=== PATIENT | female | born 1980 | race Caucasian/White ===

== ENCOUNTER 2019-11-15 12:34 | Outpatient (CLI) | payer BC | END 2019-11-15 12:35 | disposition home or self-care (01) | LOC: ULT 12:34 | PROVIDERS: ATTEND Internal Medicine | DX: I42.8 Other cardiomyopathies (principal); R00.2 Palpitations; I34.0 Nonrheumatic mitral (valve) insufficiency; I31.3 Pericardial effusion (noninflammatory); I08.8 Other rheumatic multiple valve diseases | CPT/HCPCS: 93306 ==

== ENCOUNTER 2020-01-17 07:59 | Outpatient (CLI) | payer BC ==
[2020-01-17 11:30] LABS: Hemoglobin 15.1 g/dL (12.0-16.0); Mean Corpuscular HGB CONC 33.6 g/dL (32.0-36.0); Mean Corpuscular Hemoglobin 31.6 pg (27.0-31.0); Platelet Count 281 thou/uL (130-400); RBC Distribution Width 11.6 % (11.5-14.5); Red Blood Cell (RBC) Count 4.79 mill/uL (4.20-5.40); White Blood Cell (WBC) Count 6.4 thou/uL (4.8-10.8)
[2020-01-17 11:39] LABS: PTT 30.8 SEC (22.9-36.1)
[2020-01-17 11:59] LABS: ALT (SGPT) 14 U/L (8-55); AST (SGOT) 17 U/L (5-34); Albumin 4.4 g/dL (3.5-5.0); Alkaline Phosphatase 50 U/L (40-110); Anion Gap 12 mmol/L (10-20); BUN (Urea Nitrogen) 7 mg/dL (7.0-18.7); Bilirubin, Total 0.7 mg/dL (0.2-1.2); Calc. Creatinine Clearance 0 mL/min (70-130); Calcium 9.7 mg/dL (7.8-10.44); Carbon Dioxide 24 mmol/L (22-29); Cardiac Risk 3.1 (Less than 4.5); Chloride 109 mmol/L (98-107); Cholesterol 183 mg/dl (< 200 Desired); Estimated GFR-MDRD 89; Globulin 3.2 g/dL (2.4-3.5); Glucose 98 mg/dL (70-105); HDL Cholesterol 60 mg/dL (>60 Neg Risk); LDL Cholesterol, Calculated 110 mg/dL; Potassium 3.8 mmol/L (3.5-5.1); Protein, Total 7.6 g/dL (6.0-8.3); Sodium 141 mmol/L (136-145); Triglycerides 66 mg/dL (Less than 150)
== END 2020-01-17 08:00 | disposition home or self-care (01) ==
LOC: LABBT 07:59
PROVIDERS: ATTEND Internal Medicine Cardiovascular Disease
DX: Z01.812 Encounter for preprocedural laboratory examination (principal); I47.2 Ventricular tachycardia
CPT/HCPCS: 80053; 80061; 85027; 85610; 85730

== ENCOUNTER → 2020-01-21 | Day surgery (SDC) | payer BC ==
[2020-01-17 09:53] VITALS: BMI 24.3
[~2020-01-21] MED LIST: Diazepam 5 MG TAB ONE; Fentanyl 100 MCG/2 ML VIAL ONE; Iopamidol 370 76% 100 ML VIAL ONE; Midazolam HCl 2 mg/2 ml Vial ONE
== END ==
LOC: CCL 06:22
PROVIDERS: ATTEND Internal Medicine Cardiovascular Disease
PROC: 4A023N7 Measurement of Cardiac Sampling and Pressure, Left Heart, Percutaneous Approach (ICD-10-PCS; principal; 2020-01-21)
PROC: B2111ZZ Fluoroscopy of Multiple Coronary Arteries using Low Osmolar Contrast (ICD-10-PCS; principal; 2020-01-21)
DX: I47.2 Ventricular tachycardia (principal); I49.8 Other specified cardiac arrhythmias; I34.0 Nonrheumatic mitral (valve) insufficiency; K62.89 Other specified diseases of anus and rectum; Z79.82 Long term (current) use of aspirin; Z79.899 Other long term (current) drug therapy; Z85.3 Personal history of malignant neoplasm of breast; Z88.8 Allergy status to other drugs, medicaments and biological substances; Z91.041 Radiographic dye allergy status
CPT/HCPCS: 93458; 99152; C1769; J2250; J3010; Q9967